=== PATIENT | male | born 1965 | race Caucasian/White ===

== ENCOUNTER 2021-10-05 19:29 | Emergency (ER) | payer OTHER ==
[~2021-10-05] VITALS: Ht 180.3 cm; Wt 109.1 kg
[2021-10-05 19:38] VITALS: TEMP 97.2
[2021-10-05] MEDS ORDERED: LEVAQUIN 750MG750 M1 PO (21:33)
[2021-10-05 21:42] LABS: COLLECTION METHOD CLEAN CATCH
[2021-10-05 21:48] LABS: MUCOUS Present (NOT PRESENT); PH 5 (5-8); SQUAMOUS EPITHELIAL None Seen /hpf (0-10); URINE APPEARANCE Clear (CLEAR/HAZY); URINE BACTERIA Rare (NONE SEEN); URINE BILIRUBIN Negative (NEGATIVE); URINE BLOOD Negative (NEGATIVE); URINE COLOR Yellow (YELLOW); URINE GLUCOSE 3+ (NEGATIVE); URINE KETONE Trace (NEGATIVE); URINE LEUKOCYTE ESTERASE Negative (NEGATIVE); URINE NITRATE Negative (NEGATIVE); URINE PROTEIN(semi-quant) 1+ (NEGATIVE); URINE RBC 0-2 /hpf (0-2); URINE UROBILINOGEN Negative (NEGATIVE)
[2021-10-05 22:03] VITALS: BP 150/80; PULSE 70
== END 2021-10-05 22:03 | disposition home or self-care (01) ==
LOC: COL.ER 19:29
PROVIDERS: Emergency Medicine
DX: N48.89 Other specified disorders of penis (principal); T45.0X5A Adverse effect of antiallergic and antiemetic drugs, initial encounter